=== PATIENT | male | born 1980 | race Caucasian/White ===

== ENCOUNTER 2016-06-14 10:24 | Day surgery (SDC) | payer OTHER ==
[2016-06-12 11:16] VITALS: BMI 29.8
--- NOTE | 2016-06-14 07:13 | HP ---
History & Physical Update - History History: No Change - Physical Physical: No Change - Assessment Assessment: No Change - Plan Plan: No Change
[~2016-06-14 10:24] MED LIST: oxyCODONE HCL 10 MG SUSTAINED ACTING TABLET PO STA
[2016-06-14] MEDS ORDERED: PROPOFOL 20 ML ONE ×3 (10:39)
[2016-06-14] MEDS ORDERED: DEXAMETHASONE SOD PHOSPHATE 4 MG/1 ML VIAL ONE (10:41)
[2016-06-14] MEDS ORDERED: ONDANSETRON 4 MG/2 ML VIAL ONE ×2 (10:41→14:13)
[2016-06-14] MEDS ORDERED: THROMBIN (BOVINE) 5,000 UNIT VIAL TP ONE (11:13)
[2016-06-14] MEDS ORDERED: MIDAZOLAM HCL 2 MG/2 ML SINGLE DOSE VIAL ONE ×2 (11:30→12:18)
[2016-06-14] MEDS ORDERED: ceFAZolin SODIUM 1 GM VIAL ONE (12:13)
[2016-06-14] MEDS ORDERED: methylPREDNISolone ACET (DEPO) 40 MG/1 ML VIAL ONE (13:07)
--- NOTE | 2016-06-14 13:37 | OP ---
Operative Note - Note: Operative Date: 06/14/16 Pre-Operative Diagnosis: Lumbar disc herniation L5-S1 Operation: Unilateral (left side) laminectomy, discectomy L5-S1 Post-Operative Diagnosis: Same as Pre-op Surgeon: Dieudonne Marie [employer] Worker: Raffi Block Anesthesiologist/EHR TRAINER: Lashell Moseley Anesthesia: Spinal Specimens Removed: L5-S1 disc Estimated Blood Loss (mls): 20 Fluid Volume Replaced (mls): 800 Operative Report Dictated: Yes
--- NOTE | 2016-06-14 13:38 | SURG ---
Surgery Stallion Keeper Note Stallion Keeper: Raffi Block PA-C Date of Service: 06/14/16 Diagnosis: Lumbar disc herniation (L5-S1) Procedure: Unilateral (left side) laminectomy with discectomy L5-S1 I was present for the entirety of the operative procedure. For further detail, please refer to operative report. Visit type - Case Type Case Type: Scheduled Admission - New patient This patient is new to me today: Yes Date on this admission: 06/14/16
[2016-06-14] MEDS ORDERED: oxyCODONE HCL 5 MG TABLET PO PRN (13:40)
[2016-06-14] MEDS ORDERED: LACTATED RINGERS SOLUTION 1,000 ML IV SCH (13:45)
[2016-06-14] MEDS ORDERED: ONDANSETRON 4 MG/2 ML VIAL IVPUSH PRN (13:50)
[2016-06-14 18:34] VITALS: BP 130/75; PULSE 80; TEMP 98.2
--- NOTE | 2016-06-18 12:08 | PATH ---
Surgical Pathology Report Patient Name: PAUL NOBLE [facility]. Rec. #: [id number] /Age/Gender: 1980 (Age: 35) / M Account: [id number] Location: [facility] Taken: 06/14/2016 Received: 06/14/2016 Reported: 06/18/2016 Physicians: Dieudonne Marie M.D. Specimen(s) Received L5-S1 DISC Clinical History Spinal stenosis Final Diagnosis INTERVERTEBRAL DISC, L5-S1, PARTIAL EXCISION: PORTIONS OF FIBROCARTILAGINOUS TISSUE CONSISTENT WITH PORTIONS OF INTERVERTEBRAL DISC. Electronically Signed Roldan Woo M.D. Gross Description Received in formalin, labeled "L5-S1 disc," is a 1.7 x 1.5 x 0.3 cm aggregate of soliz fragments of fibrocartilaginous tissue. The specimen is entirely submitted in one cassette. /06/15/201606/15/2016
--- NOTE | 2016-06-18 19:53 | OP ---
DATE OF OPERATION: 06/14/2016 PREOPERATIVE DIAGNOSIS: L5-S1 spinal stenosis. POSTOPERATIVE DIAGNOSIS: L5-S1 spinal stenosis. PROCEDURE PERFORMED: Laminectomy, L5-S1. SURGEON: Dieudonne Marie MD TUBE CARRIER: FRANNY Beebe ESTIMATED BLOOD LOSS: 50 mL. IV FLUIDS: Per Anesthesia. ANESTHESIA: Spinal. COMPLICATIONS: There were none. DISPOSITION: Patient brought to the PACU in stable condition. INDICATION FOR SURGERY: The patient is a 35-year-old gentleman who has been suffering from pain from his back down his left leg. X-rays and MRI were completed, which noted that he had a herniated disk at L5-S1, giving him stenosis at that level. He had gone through an exhaustive course of treatment for this, which included medications, physical therapy, as well as injections. Unfortunately his pain continued to persist despite all this. At this point, risks, benefits and alternatives were discussed and the patient consented to surgery. OPERATIVE NOTE: Patient was brought to the operating room by the anesthesia staff. After appropriate patient identification was performed, spinal anesthesia was given. He was placed prone onto the Kulwinder frame, with all areas of bony prominences well padded at this time. Two needles were placed into his back to zachary off the L5-S1 level and x-ray was taken to confirm this was correct. The needle was removed and 10 mL of lidocaine with epinephrine was injected into his back. At this time his back was prepped and draped in a sterile manner. At this point, time-out was completed. An incision was made from the top of L5 down to bottom of S1. Dissection was carried down to the fascia. The fascia was then split open at this time and the fascia was opened on the left-hand side. A spinal needle was placed onto the L5 lamina to zachary off the L5-S1 level. An x-ray was taken to confirm this was correct. The needle was removed and the microscope was brought in. Portions of the L5-S1 lamina were removed. The flavum was identified, it was removed. The nerve root was mobilized medially. Disk herniation was noted. It was removed at this time. Portions of the inferior and superior facets were removed. The foramen was decompressed such that by the end of the procedure the S1 nerve root appeared to be well decompressed. All bleeding was well controlled at this time. Steroid was placed over the nerve root, FloSeal was placed over that. The fascia was closed with a number 1 Vicryl suture. The subcutaneous tissues were closed with 2-0 Vicryl suture. Skin was closed with 3-0 Monocryl suture. Dermabond was applied, Steri-Strips were applied, a sterile dressing applied. The patient was placed supine on the OR bed and brought to the PACU in stable condition. Zandra JEAN/[id number]
== END 2016-06-14 18:20 | disposition home or self-care (01) ==
LOC: FASU 10:24
PROVIDERS: ATTEND Orthopaedic Surgery Orthopaedic Surgery of the Spine
PROC: 01NB0ZZ Release Lumbar Nerve, Open Approach (ICD-10-PCS; principal; 2016-06-14 12:27)
DX: M48.07 Spinal stenosis, lumbosacral region (principal)
CPT/HCPCS: 72100-TC; 76000-TC; 88304-TC; 94760